=== PATIENT | female | born 1980 | race Caucasian/White ===

== ENCOUNTER 2017-04-17 18:37 | Emergency (ER) | payer BC, MEDICAID ==
[~2017-04-17] VITALS: Ht 152.4 cm; Wt 94.0 kg
[~2017-04-17 18:37] MED LIST: PHEN-873 PO
[2017-04-17 20:09] LABS: BASOPHILS % (AUTO) 0.4 % (0-1); EOSINOPHILS # (AUTO) 0.1 X10'3 (0-0.9); HEMATOCRIT 40.8 % (35.0-45.0); HEMOGLOBIN 14.2 g/dl (12.0-16.0); LYMPHOCYTES % (AUTO) 13.2 % (21-51); MEAN CORPUSCULAR HEMOGLOBIN 33.2 PG (27.0-31.0); MEAN CORPUSCULAR HGB CONC 34.8 % (33.0-36.5); MEAN CORPUSCULAR VOLUME 95.4 FL (78-98); MONOCYTES # (AUTO) 0.7 X10'3 (0-0.9); MONOCYTES % (AUTO) 9.5 % (2-12); NEUTROPHILS # (AUTO) 5.9 X10'3 (1.8-7.7); NEUTROPHILS % (AUTO) 75.9 % (42-75); PLATELET COUNT 202 X10'3 (140-440); RED BLOOD COUNT 4.27 X10'6 (4.20-5.60); RED CELL DISTRIBUTION WIDTH 13.2 % (11.5-14.5); WHITE BLOOD COUNT 7.8 X10'3 (4.5-11.0)
[2017-04-17 20:34] LABS: URINE HCG NEGATIVE (NEG)
[2017-04-17 20:35] LABS: CLARITY,URINE Clear (Clear); COLOR,URINE Yellow (Yellow); GLUCOSE, URINE Negative (Neg); KETONES,URINE 15 mg/dl (Neg); LEUKOCYTE ESTERASE ,URINE Negative (Neg); NITRITES, URINE Negative (Neg); OCCULT BLOOD,URINE Negative (Neg); PH,URINE >=9.0 (4.8-8.0); PROTEIN,URINE Negative (Neg)
[2017-04-17 20:36] LABS: ALANINE AMINOTRANSFERASE 21 U/L (12-78); ALBUMIN 3.9 G/DL (3.4-5.0); ALBUMIN/GLOBULIN RATIO 1.3 (1.1-1.5); ALKALINE PHOSPHATASE 58 IU/L (46-116); ANION GAP 6 (8-16); ASPARTATE AMINO TRANSFERASE 17 U/L (10-37); BILIRUBIN,TOTAL 0.8 MG/DL (0.1-1.0); BLOOD UREA NITROGEN 9 MG/DL (7-18); BUN/CREATININE RATIO 12.9 (6.6-38.0); CALCIUM 8.6 MG/DL (8.5-10.1); CHLORIDE 106 MMOL/L (99-107); CREATINE KINASE 145 U/L (26-192); GLUCOSE 96 MG/DL (70-104); POTASSIUM 3.6 MMOL/L (3.5-5.1); SODIUM 141 MMOL/L (135-145); TOTAL CARBON DIOXIDE 29.5 MMOL/L (24-32); eGFR > 90 ML/MIN
[2017-04-17 20:42] LABS: UA COLLECTION TYPE STRAIGHT CATH
[2017-04-17 20:53] LABS: URINE AMPHETAMINE SCREEN NEGATIVE (Neg); URINE BARBITUATE SCREEN NEGATIVE (Neg); URINE BENZODIAZEPINES SCREEN NEGATIVE (Neg); URINE CANNABINOID SCREEN NEGATIVE (Neg); URINE COCAINE SCREEN NEGATIVE (Neg); URINE METHADONE SCREEN NEGATIVE (Neg); URINE OPIATE SCREEN NEGATIVE (Neg); URINE PHENCYCLIDINE SCREEN NEGATIVE (Neg)
[2017-04-18 01:09] VITALS: BP 123/83
== END 2017-04-18 01:10 | disposition home or self-care (01) ==
LOC: ER 18:37
DX: F44.9 Dissociative and conversion disorder, unspecified (principal); M81.0 Age-related osteoporosis without current pathological fracture; G25.9 Extrapyramidal and movement disorder, unspecified; K21.9 Gastro-esophageal reflux disease without esophagitis; J45.909 Unspecified asthma, uncomplicated; F32.9 Major depressive disorder, single episode, unspecified; E03.9 Hypothyroidism, unspecified; Z88.0 Allergy status to penicillin; Z88.2 Allergy status to sulfonamides; Z88.1 Allergy status to other antibiotic agents; Z98.890 Other specified postprocedural states
CPT/HCPCS: 36415; 70450; 80053; 80305; 81003; 81025; 82550; 83735; 84439; 84443; 85025; 99285; A4565; A6449

== ENCOUNTER 2021-01-22 12:07 | Emergency (ER) | payer BC, MEDICAID ==
[~2021-01-22] VITALS: Ht 154.9 cm; Wt 55.9 kg
[~2021-01-22 12:07] MED LIST changes: +PHEN-786 PO; -PHEN-873 PO
[2021-01-22 12:09] VITALS: BP 123/37
[2021-01-22] MEDS ORDERED: triamcinolone acetonide 40mg/ml inj IM ONE (12:30)
[2021-01-22] MEDS ORDERED: METH4TAB81 PO (12:35)
== END 2021-01-22 13:45 | disposition home or self-care (01) ==
LOC: ER 12:08
DX: L50.0 Allergic urticaria (principal); J45.909 Unspecified asthma, uncomplicated; K21.9 Gastro-esophageal reflux disease without esophagitis; E06.9 Thyroiditis, unspecified; F32.9 Major depressive disorder, single episode, unspecified; Z88.2 Allergy status to sulfonamides; Z88.0 Allergy status to penicillin; Z88.8 Allergy status to other drugs, medicaments and biological substances; Z79.899 Other long term (current) drug therapy; Z88.1 Allergy status to other antibiotic agents
CPT/HCPCS: 96372; 99283; J3301

== ENCOUNTER 2021-07-30 16:58 | Emergency (ER) | payer BC, MEDICAID ==
[~2021-07-30] VITALS: Ht 154.9 cm; Wt 56.8 kg
[~2021-07-30 16:58] MED LIST changes: +METH4TAB81 PO
[2021-07-30 17:08] VITALS: BP 97/67
[2021-07-30] MEDS ORDERED: fluorescein sod 1mg ophthalmic strip RIGHTEYE ONE (18:50)
[2021-07-30] MEDS ORDERED: DIPH-423 PO (19:44)
[2021-07-30] MEDS ORDERED: FAMO20TA8 PO (19:44)
[2021-07-30] MEDS ORDERED: PRED20TA PO (19:44)
== END 2021-07-30 19:53 | disposition home or self-care (01) ==
LOC: ER 16:59
DX: H10.89 Other conjunctivitis (principal)
CPT/HCPCS: 99283; J3490

== ENCOUNTER 2021-11-18 16:53 | Emergency (ER) | payer BC, MEDICAID ==
[~2021-11-18] VITALS: Ht 154.9 cm; Wt 57.3 kg
[~2021-11-18 16:53] MED LIST changes: +FAMO20TA8 PO
[2021-11-18 17:58] VITALS: BP 117/77
[2021-11-18] MEDS ORDERED: ibuprofen tablet 400 MG TABLET PO ONE (20:10)
== END 2021-11-18 20:34 | disposition home or self-care (01) ==
LOC: ER 16:54
DX: S90.02XA Contusion of left ankle, initial encounter (principal); K21.9 Gastro-esophageal reflux disease without esophagitis; J45.909 Unspecified asthma, uncomplicated; E06.9 Thyroiditis, unspecified; F32.A Depression, unspecified; Z88.2 Allergy status to sulfonamides; Z79.899 Other long term (current) drug therapy; Z88.0 Allergy status to penicillin; Z88.1 Allergy status to other antibiotic agents; X58.XXXA Exposure to other specified factors, initial encounter; Y93.89 Activity, other specified; Y92.89 Other specified places as the place of occurrence of the external cause; Y99.8 Other external cause status
CPT/HCPCS: 73630; 99284; L4360

== ENCOUNTER 2023-09-09 19:59 | Emergency (ER) | payer OTHER, MEDICAID ==
[~2023-09-09] VITALS: Ht 154.9 cm; Wt 61.8 kg
[2023-09-10 01:59] VITALS: BP 140/83; PULSE 75; RESP 16; TEMP 97.1; O2SAT 98
== END 2023-09-10 02:02 | disposition home or self-care (01) ==
LOC: ER 20:00
DX: M79.604 Pain in right leg (principal); K21.9 Gastro-esophageal reflux disease without esophagitis; E03.9 Hypothyroidism, unspecified; J45.909 Unspecified asthma, uncomplicated; Z88.2 Allergy status to sulfonamides; Z88.0 Allergy status to penicillin; Z88.1 Allergy status to other antibiotic agents; Z79.899 Other long term (current) drug therapy
CPT/HCPCS: 73590; 99283